=== PATIENT | male | born 1940 | race Caucasian/White ===

== ENCOUNTER → 2016-10-18 | Outpatient (CLI) | payer MEDICARE, BC ==
[~2016-10-18] MED LIST: ADVAIR 500-501 EACH IH; CELLCEPT500 MG PO; CLARINEX5 MG PO; FLONASE16 GM; GLUCOSAMINE & C1 CAP PO; LOSARTAN POTASS50 MG PO; LOVENOX40 MG/0.4 INJ; MULTI-VITAMIN1 EAC1 PO; PERCOCET5/325 PO; SINGULAIR PO
--- NOTE | ~2016-10-18 | CT95 ---
[facility] A Service of [facility] & [facility] RADIOLOGY TEXT RESULTS PATIENT: MIS HEARN [facility] UNIT #: [id number] AGE: [address]: Priya Lubin MD SEX: M ORDER DR: [id number] [facility] [address] [place], [place] [address] [id number] O MR#: [id number] Acc #: [id number] NAME: MIS HEARN : 1940 SEX: M STUDY DATE/TIME: 10/18/2016 15:02 UNIT: [facility] ROOM: STUDY DESCRIPTION: CT Lower Ext Rt Wo Cont Attending Physician: Mima Lubin M.D. Referring Physician: Mima Lubin M.D. Ordering Physician: Mima Lubin M.D. Primary Care Physician: Generic Doctor Not In System MEDICAL IMAGING REPORT This report is preliminary unless electronic signature is present EXAM CT right ankle without contrast, 10/18/2016. HISTORY 75-year-old male with right ankle pain for 2 months. 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 Order states loosening hardware. COMPARISON Right ankle x-rays, 01/08/2014, 02/18/2014, 04/13/2014, 10/18/2016. TECHNIQUE Helical scan performed through the right ankle without IV contrast. Metal reduction techniques were maximized. Coronal and sagittal reformatted images. This CT exam was performed with one or more of the following radiation dose reduction techniques: automatic exposure control, adjustment of mA and/or kV according to patient size, and iterative reconstruction. 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 There are also 2 medial malleolar interfragmentary screws. There is a slightly prominent lucency noted around the stem of the tibial component, which may suggest hardware loosening in the appropriate clinical setting. This appears increased since the patient's comparison right ankle x-rays from 2013. No significant periprosthetic lucency involving the talar component. There is some questionable mild lateral tilt of the tibial component, as the ankle is positioned in the scanner. There is also some suspected mild to moderate narrowing of the medial ankle mortise. No evidence of acute fracture or dislocation. No significant joint effusion. Subtalar joint appears within normal limits. 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 STS. [facility] A Service of [facility] RADIOLOGY TEXT RESULTS PATIENT: MIS HEARN LOCATION: [facility] : 38 UNIT #: [id number] AGE: [address]: Priya Lubin MD SEX: M ORDER DR: The peroneus brevis tendon demonstrates somewhat of a chevron appearance in the retromalleolar and inframalleolar portion which may suggest a longitudinal split tear. Remainder of the flexor and extensor tendons appear unremarkable. IMPRESSION 1. 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 There is mildly prominent lucency noted around the tibial stem of the tibial component which may suggest hardware loosening in the appropriate clinical setting. There is also questionable minimal lateral tilt of the tibial component in relation to the talar component. No significant lucency around the talar component. No periprosthetic fracture. 2. 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 3. Slight chevron appearance of the retromalleolar and inframalleolar peroneus brevis tendon which could suggest a longitudinal split tear in the appropriate clinical setting. Dictated by... Naun Ordaz M.D. THIS IS AN ELECTRONICALLY VERIFIED REPORT Naun Ordaz M.D. at 10/20/2016 8:31 AM MARGO/stephani TD: 10/19/2016 18:50 JOB #: [id number] MEDICAL IMAGING REPORT Page 1 of 1 COPY
== END | disposition home or self-care (01) ==
LOC: CCAT 13:31
DX: T84.89XA Other specified complication of internal orthopedic prosthetic devices, implants and grafts, initial encounter (principal)
CPT/HCPCS: 73700